=== PATIENT | female | born 1960 | race African-American/Black ===

== ENCOUNTER 2018-10-11 18:18 | Inpatient (IN) | payer MEDICAID ==
[~2018-10-11] VITALS: Ht 157.5 cm; Wt 53.5 kg
[~2018-10-11 18:18] MED LIST: HYDR-4134 PO
[2018-10-12] MEDS ORDERED: ENALAPRIL 2.5MG/2ML VIAL 2ML IV ONE
[2018-10-12] MEDS ORDERED: ASPIRIN 81MG TABLET PO ONE
[2018-10-12] MEDS ORDERED: NITROGLYCERIN OINT 1GM/INCH UDPKT TD ONE
[2018-10-12 00:10] LABS: BASOPHILS % 1.5 % (0.0-2.0); EOSINOPHILS % 1.2 % (0.0-5.0); HEMATOCRIT. 45.4 % (36.0-48.0); HEMOGLOBIN. 15.1 g/dL (12.0-16.0); LYMPHOCYTES % 43.6 % (20.0-50.0); MEAN CORPUSCULAR HEMOGLOBIN 29.6 pg (28.0-32.0); MEAN CORPUSCULAR VOLUME 89.1 fL (81.0-99.0); MONOCYTES % 13.1 % (2.0-8.0); NEUTROPHILS % 40.6 % (40.0-76.0); PLATELET 203 x1000/uL (130-400); RED BLOOD CELL COUNT 5.09 mill/uL (4.2-5.4); RED CELL DISTRIBUTION WIDTH 14.1 % (11.6-14.6)
[2018-10-12 00:26] LABS: *AMPHETAMINES SCREEN URINE NEGATIVE (NEGATIVE)
[2018-10-12 00:27] LABS: *BARBITURATES SCREEN URINE NEGATIVE (NEGATIVE); *BENZODIAZEPINES SCREEN URINE NEGATIVE (NEGATIVE); *COCAINE SCREEN URINE PRESUMTIVE POSITIVE (NEGATIVE); CANNABINOID URINE SCREEN PRESUMTIVE POSITIVE (NEGATIVE); METHADONE URINE SCREEN NEGATIVE (NEGATIVE); OPIATES URINE SCREEN NEGATIVE (NEGATIVE); PHENCYCLIDINE URINE SCREEN NEGATIVE (NEGATIVE)
[2018-10-12 06:37] VITALS: BP 121/75
[2018-10-12] MEDS: HYDRALAZINE HCL 100MG TABLET PO SCH ×2 (07:30→14:00)
[2018-10-12 07:47] VITALS: BP 109/68
[2018-10-12] MEDS: MORPHINE SULFATE 4 MG/ML CPJ (NOT FOR IM USE) IV PRN ×2 (08:02→20:43)
[2018-10-12] MEDS: ASPIRIN 81MG TABLET PO SCH (08:02)
[2018-10-12] MEDS ORDERED: ONDANSETRON HCL 4MG/2ML INJ IV PRN (08:15)
[2018-10-12] MEDS ORDERED: ACETAMINOPHEN 325MG TABLET PO PRN (08:15)
[2018-10-12] MEDS ORDERED: LISINOPRIL 20MG TABLET PO SCH (09:00)
[2018-10-12] MEDS ORDERED: AMLODIPINE 10MG TABLET PO SCH (09:00)
[2018-10-12 12:00] VITALS: BP 121/76
[2018-10-12 14:11] VITALS: BP 115/55
[2018-10-12 14:39] LABS: CLARITY URINE CLEAR (CLEAR); COLOR URINE YELLOW (YELLOW); KETONES URINE NEGATIVE (NEGATIVE); LEUKOCYTE ESTERASE URINE TRACE (NEGATIVE); NITRITE URINE NEGATIVE (NEGATIVE); OCCULT BLOOD URINE NEGATIVE (NEGATIVE); PROTEIN URINE 1+ (NEGATIVE); SPECIFIC GRAVITY URINE 1.021 (1.005-1.030); UROBILINOGEN URINE 0.2 E.U./dL (0.2-1.0)
[2018-10-12 16:00] VITALS: BP 123/79
[2018-10-12 20:00] VITALS: BP 122/73
[2018-10-12] MEDS: HYDRALAZINE HCL 50MG TABLET PO SCH (20:43)
[2018-10-12] MEDS ORDERED: ATORVASTATIN CALCIUM 20MG TABLET PO SCH (21:00)
[2018-10-13] VITALS: BP 108/57
[2018-10-13 04:00] VITALS: BP 139/93
[2018-10-13 07:18] LABS: EOSINOPHILS % 1.4 % (0.0-5.0); HEMATOCRIT. 42.4 % (36.0-48.0); HEMOGLOBIN. 13.7 g/dL (12.0-16.0); LYMPHOCYTES % 45.5 % (20.0-50.0); MEAN CORPUSCULAR VOLUME 89.7 fL (81.0-99.0); MEAN PLATELET VOLUME 10.9 fl (7.4-10.4); MONOCYTES % 13.4 % (2.0-8.0); NEUTROPHILS % 38.7 % (40.0-76.0); PLATELET 168 x1000/uL (130-400); RED BLOOD CELL COUNT 4.73 mill/uL (4.2-5.4); RED CELL DISTRIBUTION WIDTH 13.7 % (11.6-14.6)
[2018-10-13 08:00] VITALS: BP 141/87
[2018-10-13] MEDS: ASPIRIN 81MG TABLET PO SCH (09:39)
[2018-10-13] MEDS: HYDRALAZINE HCL 50MG TABLET PO SCH (09:39)
[2018-10-13] MEDS: MORPHINE SULFATE 4 MG/ML CPJ (NOT FOR IM USE) IV PRN (09:39)
[2018-10-13 12:00] VITALS: BP 146/83
[2018-10-13 14:12] VITALS: BP 146/83
== END 2018-10-13 15:45 | disposition home or self-care (01) | DRG 199 ==
LOC: ER 22:15 → 7WST 10-12 02:49 → EDBEDREQTM 10-12 03:11 → EDBEDREQDT 10-12 03:11 → EDBEDREQ 10-12 03:12 → ENRESERV 10-12 05:14 → 7WST 10-12 06:21
PROVIDERS: ADMIT Internal Medicine; ATTEND Internal Medicine
DX: I16.0 Hypertensive urgency (principal); N17.9 Acute kidney failure, unspecified; E87.8 Other disorders of electrolyte and fluid balance, not elsewhere classified; M32.9 Systemic lupus erythematosus, unspecified; M94.0 Chondrocostal junction syndrome [Tietze]; E78.5 Hyperlipidemia, unspecified; I12.9 Hypertensive chronic kidney disease with stage 1 through stage 4 chronic kidney disease, or unspecified chronic kidney disease; F12.90 Cannabis use, unspecified, uncomplicated; F17.210 Nicotine dependence, cigarettes, uncomplicated; F14.10 Cocaine abuse, uncomplicated; N18.2 Chronic kidney disease, stage 2 (mild); Z91.013 Allergy to seafood; Z79.899 Other long term (current) drug therapy; Z71.51 Drug abuse counseling and surveillance of drug abuser; Z87.440 Personal history of urinary (tract) infections
CPT/HCPCS: 36415; 71045; 80048; 80305; 83880; 84484; 86038; 93005; 93306; 93970; 99285; J2270; J3490

== ENCOUNTER 2022-08-15 17:00 | Inpatient (IN) | payer MEDICAID, OTHER ==
[~2022-08-15] VITALS: Ht 157.5 cm; Wt 56.8 kg
[2022-08-15 19:25] LABS: BASOPHILS % 0.6 % (0.0-2.0); EOSINOPHILS % 0.2 % (0.0-5.0); HEMOGLOBIN. 16.2 g/dL (12.0-16.0); LYMPHOCYTES % 18.3 % (20.0-50.0); MEAN CORPUSCULAR HEMOGLOBIN 30.5 pg (28.0-32.0); MEAN CORPUSCULAR VOLUME 92.5 fL (81.0-99.0); MONOCYTES % 14.1 % (2.0-8.0); NEUTROPHILS % 66.8 % (40.0-76.0); PLATELET 199 x1000/uL (130-400); RED CELL DISTRIBUTION WIDTH 14.1 % (11.6-14.6)
[2022-08-15 19:34] LABS: CHLORIDE 107 mEq/L (98-107)
[2022-08-16] MEDS: AMLODIPINE 5MG TABLET PO SCH (10:45)
[2022-08-16] MEDS ORDERED: ONDANSETRON HCL 4MG/2ML INJ IV PRN (10:45)
[2022-08-16] MEDS ORDERED: CLONIDINE 0.1MG TABLET PO PRN (10:45)
[2022-08-16] MEDS ORDERED: ENOXAPARIN 40MG/0.4ML SYR SUBCUT SCH (10:45)
[2022-08-16] MEDS ORDERED: IPRATROPIUM/ALBUTEROL 0.5-3(2.5)MG/3ML NEB HHN SCH (11:00)
[2022-08-16] MEDS: PANTOPRAZOLE SODIUM 40 MG/VIAL IV SCH (11:42)
[2022-08-16 14:00] VITALS: BP 147/89
[2022-08-16] MEDS ORDERED: IPRATROPIUM BROMIDE (0.02%) 0.5MG/2.5ML NEB HHN PRN (14:30)
[2022-08-16] MEDS ORDERED: ALBUTEROL (0.083%) 2.5MG/3ML NEB HHN PRN (14:30)
[2022-08-16 16:47] LABS: CREATINE KINASE MB FRACTION 4.7 ng/mL (0.5-3.6)
[2022-08-16] MEDS: ACETAMINOPHEN 325MG TABLET PO PRN ×2 (16:58→20:13)
[2022-08-16 17:03] LABS: HEPATITIS B SURFACE ANTIGEN NEGATIVE
[2022-08-16] MEDS: IPRATROPIUM BROMIDE (0.02%) 0.5MG/2.5ML NEB HHN SCH ×2 (17:15→21:10)
[2022-08-16] MEDS: ALBUTEROL (0.083%) 2.5MG/3ML NEB HHN SCH ×2 (17:15→21:11)
[2022-08-16 20:00] VITALS: BP 138/65
[2022-08-17] VITALS: BP 133/72
[2022-08-17 00:24] LABS: CREATINE KINASE MB FRACTION 3.7 ng/mL (0.5-3.6)
[2022-08-17] MEDS: ALBUTEROL (0.083%) 2.5MG/3ML NEB HHN SCH ×2 (01:35→10:06)
[2022-08-17] MEDS: IPRATROPIUM BROMIDE (0.02%) 0.5MG/2.5ML NEB HHN SCH ×2 (01:35→10:06)
[2022-08-17 04:00] VITALS: BP 140/90
[2022-08-17 08:00] VITALS: BP 132/81
[2022-08-17] MEDS: PANTOPRAZOLE SODIUM 40 MG/VIAL IV SCH (08:40)
[2022-08-17] MEDS: AMLODIPINE 5MG TABLET PO SCH (08:41)
[2022-08-17] MEDS: ACETAMINOPHEN 325MG TABLET PO PRN (08:41)
[2022-08-17 09:42] LABS: CLARITY URINE CLEAR (CLEAR); COLOR URINE YELLOW (YELLOW); KETONES URINE TRACE (NEGATIVE); LEUKOCYTE ESTERASE URINE NEGATIVE (NEGATIVE); NITRITE URINE NEGATIVE (NEGATIVE); OCCULT BLOOD URINE NEGATIVE (NEGATIVE); PROTEIN URINE 3+ (NEGATIVE); SPECIFIC GRAVITY URINE 1.021 (1.005-1.030)
[2022-08-17 10:24] LABS: *AMPHETAMINES SCREEN URINE NEGATIVE (NEGATIVE); *BARBITURATES SCREEN URINE NEGATIVE (NEGATIVE); *BENZODIAZEPINES SCREEN URINE NEGATIVE (NEGATIVE); *COCAINE SCREEN URINE PRESUMTIVE POSITIVE (NEGATIVE); CANNABINOID URINE SCREEN PRESUMTIVE POSITIVE (NEGATIVE); METHADONE URINE SCREEN NEGATIVE (NEGATIVE); OPIATES URINE SCREEN NEGATIVE (NEGATIVE); PHENCYCLIDINE URINE SCREEN NEGATIVE (NEGATIVE)
[2022-08-17] MEDS ORDERED: RISP0.5T65 MT (10:31)
[2022-08-17] MEDS ORDERED: AMLO5TAB88 MT (10:40)
[2022-08-17 11:41] VITALS: BP 132/81
[2022-08-17] MEDS ORDERED: ENOXAPARIN 30MG/0.3ML SYR SUBCUT SCH (12:00)
[2022-08-18 09:07] LABS: HIV SCREEN 4G Non Reactive (Non Reactive)
[2022-08-18 10:10] LABS: ANTI-NUCLEAR ANTIBODIES DIRECT Positive (Negative)
[2022-08-24 04:07] LABS: ANA CENTROMERE PATTERN >1:1280 (.); ANA IFA Positive (.)
== END 2022-08-17 12:58 | disposition home or self-care (01) | DRG 190 ==
LOC: ER 17:00 → MICUSO 23:49 → EDBEDREQ 23:50 → EDBEDREQTM 23:50 → 7WST 08-16 14:21
PROVIDERS: ADMIT Internal Medicine; ATTEND Internal Medicine
DX: I24.9 Acute ischemic heart disease, unspecified (principal); I21.A1 Myocardial infarction type 2; N17.9 Acute kidney failure, unspecified; B19.20 Unspecified viral hepatitis C without hepatic coma; E78.5 Hyperlipidemia, unspecified; I12.9 Hypertensive chronic kidney disease with stage 1 through stage 4 chronic kidney disease, or unspecified chronic kidney disease; N18.9 Chronic kidney disease, unspecified; F17.210 Nicotine dependence, cigarettes, uncomplicated; F14.10 Cocaine abuse, uncomplicated
CPT/HCPCS: 36415; 71045; 76770; 80053; 80305; 81003; 82550; 82553; 83880; 84484; 85025; 85379; 86038; 86160; 86256; 86705; 86709; 86803; 87340; 87389; 93005; 93970; 94640; 99291; C9113; J1650

== ENCOUNTER 2022-09-02 05:24 | Inpatient (IN) | payer OTHER ==
[~2022-09-02] VITALS: Ht 162.6 cm; Wt 54.0 kg
[~2022-09-02 05:24] MED LIST changes: +AMLO5TAB88 MT; -HYDR-4134 PO; +RISP0.5T65 MT
[2022-09-02] MEDS ORDERED: AZITHROMYCIN 500MG/250ML 250 ML IV ONE (06:30)
[2022-09-02] MEDS ORDERED: CEFTRIAXONE 1GM PREMIX 50 ML IV ONE (06:30)
[2022-09-02 06:41] LABS: BASOPHILS % 0.7 % (0.0-2.0); EOSINOPHILS % 0.4 % (0.0-5.0); HEMATOCRIT. 48.8 % (36.0-48.0); HEMOGLOBIN. 16.1 g/dL (12.0-16.0); LYMPHOCYTES % 13.5 % (20.0-50.0); MEAN CORPUSCULAR HEMOGLOBIN 30.5 pg (28.0-32.0); MEAN CORPUSCULAR VOLUME 92.7 fL (81.0-99.0); MEAN PLATELET VOLUME 10.1 fl (7.4-10.4); NEUTROPHILS % 74.4 % (40.0-76.0); PLATELET 223 x1000/uL (130-400); RED BLOOD CELL COUNT 5.26 mill/uL (4.2-5.4); RED CELL DISTRIBUTION WIDTH 14.1 % (11.6-14.6)
[2022-09-02 08:03] LABS: CHLORIDE 116 mEq/L (98-107)
[2022-09-02 11:00] VITALS: BP 183/95
[2022-09-02 11:05] VITALS: BP 163/78
[2022-09-02] MEDS ORDERED: ACETAMINOPHEN 325MG TABLET PO PRN (11:30)
[2022-09-02] MEDS ORDERED: IPRATROPIUM/ALBUTEROL 0.5-3(2.5)MG/3ML NEB HHN PRN (11:30)
[2022-09-02] MEDS ORDERED: ONDANSETRON HCL 4MG/2ML INJ IV PRN (11:30)
[2022-09-02] MEDS ORDERED: ASPI-1497 MT (12:03)
[2022-09-02] MEDS: ASPIRIN 81MG TABLET PO SCH (12:41)
[2022-09-02] MEDS: AMLODIPINE 5MG TABLET PO SCH (12:41)
[2022-09-02] MEDS: TRAMADOL 50MG TABLET PO PRN ×2 (12:42→20:32)
[2022-09-02 16:00] VITALS: BP 162/87
[2022-09-02] MEDS ORDERED: NALOXONE HCL 0.4MG/ML VIAL IV PRN (16:15)
[2022-09-02] MEDS: ENOXAPARIN 30MG/0.3ML SYR SUBCUT SCH (17:00)
[2022-09-02] MEDS: HYDRALAZINE HCL 100MG TABLET PO SCH (18:36)
[2022-09-02 20:00] VITALS: BP 137/52
[2022-09-03] VITALS (7 sets, daily range): BP systolic 107–153; BP diastolic 67–84
[2022-09-03] MEDS: HYDRALAZINE HCL 100MG TABLET PO SCH ×2 (06:17→13:07)
[2022-09-03 07:23] LABS: BASOPHILS % 0.6 % (0.0-2.0); EOSINOPHILS % 0.2 % (0.0-5.0); HEMATOCRIT. 44.1 % (36.0-48.0); HEMOGLOBIN. 14.9 g/dL (12.0-16.0); LYMPHOCYTES % 15.5 % (20.0-50.0); MEAN CORPUSCULAR HEMOGLOBIN 31.4 pg (28.0-32.0); MEAN CORPUSCULAR VOLUME 93.4 fL (81.0-99.0); MEAN PLATELET VOLUME 10.2 fl (7.4-10.4); MONOCYTES % 10.8 % (2.0-8.0); NEUTROPHILS % 72.9 % (40.0-76.0); PLATELET 230 x1000/uL (130-400); RED BLOOD CELL COUNT 4.72 mill/uL (4.2-5.4); RED CELL DISTRIBUTION WIDTH 14.1 % (11.6-14.6)
[2022-09-03] MEDS ORDERED: CEFTRIAXONE 1GM PREMIX 50 ML IV SCH (09:00)
[2022-09-03] MEDS: ASPIRIN 81MG TABLET PO SCH (09:26)
[2022-09-03] MEDS: DOCUSATE SODIUM 250MG CAPSULE PO SCH ×2 (09:26→16:50)
[2022-09-03] MEDS: AMLODIPINE 5MG TABLET PO SCH (09:26)
[2022-09-03] MEDS ORDERED: HYDR100T26 PO (10:39)
[2022-09-03] MEDS ORDERED: IPRATROPIUM/ALBUTEROL 0.5-3(2.5)MG/3ML NEB HHN SCH (12:00)
[2022-09-03] MEDS ORDERED: FLUT1DIS3 INH (12:20)
[2022-09-03] MEDS ORDERED: ALBU18HF2 IH (12:20)
[2022-09-03] MEDS ORDERED: FUROSEMIDE 20MG/2ML VIAL IVP NR (15:15)
[2022-09-03] MEDS: ENOXAPARIN 30MG/0.3ML SYR SUBCUT SCH (16:50)
== END 2022-09-03 22:27 | disposition home or self-care (01) | DRG 469 ==
LOC: ER 05:24 → 3WST 06:30
PROVIDERS: ADMIT Internal Medicine; ATTEND Internal Medicine
DX: N17.9 Acute kidney failure, unspecified (principal); J96.20 Acute and chronic respiratory failure, unspecified whether with hypoxia or hypercapnia; I21.A1 Myocardial infarction type 2; E44.1 Mild protein-calorie malnutrition; I12.9 Hypertensive chronic kidney disease with stage 1 through stage 4 chronic kidney disease, or unspecified chronic kidney disease; J68.0 Bronchitis and pneumonitis due to chemicals, gases, fumes and vapors; Z20.822 Contact with and (suspected) exposure to COVID-19; E87.8 Other disorders of electrolyte and fluid balance, not elsewhere classified; N18.9 Chronic kidney disease, unspecified; F12.10 Cannabis abuse, uncomplicated; F14.10 Cocaine abuse, uncomplicated; Z68.20 Body mass index [BMI] 20.0-20.9, adult; T59.891A Toxic effect of other specified gases, fumes and vapors, accidental (unintentional), initial encounter; Y92.89 Other specified places as the place of occurrence of the external cause
CPT/HCPCS: 36415; 71045; 80048; 80053; 83880; 84484; 85025; 87426; 93005; 99285; C9803; J0456; J0696; J1650; J1940